=== PATIENT | male | born 1990 | race Caucasian/White ===

== ENCOUNTER 2017-03-11 20:54 | Emergency (ER) | payer MEDICAID ==
[~2017-03-11] VITALS: Ht 170.2 cm; Wt 72.6 kg
[2017-03-11] MEDS ORDERED: METRONIDAZOLE 500 MG TABLET PO ONE (22:30)
[2017-03-11] MEDS ORDERED: HYDROCODONE/APAP 10-325 MG TABLET PO ONE (22:30)
[2017-03-11] MEDS ORDERED: SULFAMETH/TRIMETH 800/160 MG TABLET PO ONE (22:30)
[2017-03-11] MEDS ORDERED: CEFTRIAXONE 1 G VIAL IM ONE (22:30)
[2017-03-11] MEDS ORDERED: LIDOCAINE HCL 1% 20 ML VIAL ONE (22:38)
[2017-03-11] MEDS ORDERED: CEFTRIAXONE 1 G VIAL ONE (22:38)
[2017-03-11] MEDS ORDERED: METRONIDAZOLE 500 MG TABLET ONE (22:38)
[2017-03-11] MEDS ORDERED: HYDROCODONE/APAP 10-325 MG TABLET ONE (22:38)
--- NOTE | 2017-03-11 22:38 | NUR ---
Patient does not wish to proceed with medical care recommended by Dr. CHAPMAN ). Patient given information related to possible complications, up to and including , which could occur as a result of leaving the hospital at this time. Patient verbalizes understanding of risks involved due to leaving against medical advice. Patient has signed AMA form.
[2017-03-11] MEDS ORDERED: SULFAMETH/TRIMETH 800/160 MG TABLET ONE (22:39)
[2017-03-11 22:40] VITALS: BP 120/66
== END 2017-03-11 22:42 | disposition left against medical advice (07) ==
LOC: ER 20:56
DX: L03.113 Cellulitis of right upper limb (principal); F11.10 Opioid abuse, uncomplicated; F17.200 Nicotine dependence, unspecified, uncomplicated; F41.9 Anxiety disorder, unspecified; Z71.6 Tobacco abuse counseling; Z88.0 Allergy status to penicillin; Z59.0 Homelessness
CPT/HCPCS: A4663; J0696; J3490

== ENCOUNTER 2017-04-21 03:21 | Emergency (ER) | payer MEDICAID ==
[~2017-04-21] VITALS: Ht 170.2 cm; Wt 68.0 kg
[2017-04-21 04:14] LABS: *BILIRUBIN,URIN NEGATIVE (NEGATIVE); *BLOOD, URINE 1+ (NEGATIVE); *CLARITY,URINE CLEAR (CLEAR); *COLOR,URINE YELLOW (YELLOW); *KETONES,URINE NEGATIVE (NEGATIVE); *PROTEIN,URINE TRACE (NEGATIVE); *UROBILINOGEN,URINE 0.2 E.U./dl (NORMAL); LEUKOCYTE ESTERASE ,URINE NEGATIVE (NEGATIVE); NITRITE, URINE NEGATIVE (NEGATIVE); PH,URINE 5.5 (5.0-8.0); UGLUCOSE NEGATIVE (NEGATIVE)
[2017-04-21 04:15] LABS: BASOPHILS # (AUTO) 0.1 K/uL (0.0-8.0); BASOPHILS % (AUTO) 0.7 % (0.0-2.0); EOSINOPHILS # (AUTO) 0.2 K/uL (0.0-0.7); EOSINOPHILS % (AUTO) 2.8 % (0.0-7.0); HEMATOCRIT 36.6 % (40-50); HEMOGLOBIN 11.8 G/DL (14.0-18.0); LYMPHOCYTES # (AUTO) 2.7 K/UL (0.8-4.8); LYMPHOCYTES % (AUTO) 34.3 % (20.5-51.5); MEAN CORPUSCULAR HEMOGLOBIN 26.4 UUG (27.0-31.0); MEAN CORPUSCULAR HGB CONC 32 g/dL (32.0-37.0); MEAN CORPUSCULAR VOLUME 81.6 FL (82.0-92.0); MONOCYTES # (AUTO) 0.6 K/UL (0.1-1.30); MONOCYTES % (AUTO) 7.4 % (0.0-11.0); NEUTROPHILS # (AUTO) 4.3 K/UL (1.8-8.9); NEUTROPHILS % (AUTO) 54.8 % (38.5-71.5); PLATELET COUNT (AUTO) 318 K/UL (150-450); RED BLOOD CELL COUNT(AUTO) 4.48 MIL/UL (4.7-6.1); WHITE BLOOD COUNT (AUTO) 7.9 K/UL (4.0-11.2)
--- NOTE | 2017-04-21 04:20 | NUR ---
Pt to room and changed into gown. Pt sts he has been using drugs last year and half, wants help to get clean and sober. Pt denies SI and HI at this time. 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 PT seen by . Labs drawn and sent. EKG obtained. Pt resting in position of comfort for self.
[2017-04-21 04:21] LABS: CARBON DIOXIDE 29 mmol/L (21-32); CHLORIDE 101 mmol/L (98-107); CREATININE 0.9 mg/dL (0.6-1.3); GLUCOSE 106 mg/dL (74-106); POTASSIUM 3.6 mmol/L (3.5-5.1); UREA NITROGEN, BLOOD 12 mg/dL (7-18)
[2017-04-21 04:27] LABS: ALANINE AMINOTRANSFERASE 22 U/L (16-63); ALKALINE PHOSPHATASE 85 U/L (50-136); ASPARTATE AMINOTRANSFERASE 21 U/L (15-37); BILIRUBIN,DIRECT 0.1 mg/dL (0.0-0.2); BILIRUBIN,TOTAL 0.2 mg/dL (0.2-1.0); TOTAL PROTEIN, SERUM 8.1 g/dL (6.4-8.2)
[2017-04-21 04:28] LABS: *AMPHETAMINE, URINE POSITIVE (NEGATIVE); *BARBITURATE, URINE NEGATIVE (NEGATIVE); *CANNABINOID, URINE POSITIVE (NEGATIVE); *COCCAINE, URINE NEGATIVE (NEGATIVE); *OPIATE, URINE POSITIVE (NEGATIVE); *PHENCYCLIDINE SCREEN,URINE NEGATIVE (NEGATIVE)
[2017-04-21 04:35] LABS: ACETAMINOPHEN < 2.0 ug/mL (10-30)
[2017-04-21 04:36] LABS: ETHANOL < 3 MG/DL (0-0)
[2017-04-21 04:37] LABS: BACTERIA,URINE FEW /HPF (NONE SEEN); MUCUS,URINE MANY /LPF (0-FEW); SQUAMOUS EPITHELIAL CELL,UR FEW /HPF (NONE SEEN); WBC,URINE 0-3 /HPF (0-3)
--- NOTE | 2017-04-21 04:55 | NUR ---
PER ERMD PT MEDICALLY CLEARED, CONTACTED ONCALL GONZALES NEAL, STATES HE WILL BE IN BY SHIFT CHANGE [id number]...
--- NOTE | 2017-04-21 05:34 | NUR ---
Pt resting in position of comfort for self with eyes closed, resp even and unlabored. No obvious signs of distress at this time.
--- NOTE | 2017-04-21 07:10 | NUR ---
Report given to NICKI Carcamo. I relinquish care of pt at this time.
--- NOTE | 2017-04-21 07:30 | NUR ---
arnoldo wood at bedside for psych eval
--- NOTE | 2017-04-21 08:45 | NUR ---
[facility] regular tray provided for pt.
--- NOTE | 2017-04-21 09:16 | NUR ---
per jaiden at [facility], pt is not accepted to [facility]. md and pt notified
--- NOTE | 2017-04-21 09:47 | NUR ---
[facility] social worker at bedside talking to pt.
--- NOTE | 2017-04-21 10:01 | NUR ---
Patient discharged to home in stable conditon. Written and verbal after care instructions given. Patient verbalizes understanding of instructions.pt walks in steady gait. no sign of distress.
[2017-04-21 10:02] VITALS: BP 109/61
--- NOTE | 2017-04-21 13:23 | NUR ---
SW met with patient this morning, per request from NICKI Carcamo. Patient was in the bed in his assigned ED room. Patient was sleeping, but woke up to speak with SW. Patient was cooperative with SW, but stated that he didn't feel he needed any resources and was planning on returning to his previous homeless lifestyle. Patient was assessed last night by the crisis team ADDY (see notes). SW asked patient if there was anyone he wanted SW to call for him, but patient stated that he would call his friend after leaving the ED. Patient then asked SW if he just wanted to get a few more minutes of sleep before leaving. SW ended the meeting, and wished patient well. Upon discharge, patient signed the Homeless Patient Waiver Form. Form filed in patient's ED chart. Dr. Yanez and NICKI Carcamo informed of above.
== END 2017-04-21 10:03 | disposition home or self-care (01) ==
LOC: ER 03:27
DX: F32.9 Major depressive disorder, single episode, unspecified (principal); F41.9 Anxiety disorder, unspecified; F17.200 Nicotine dependence, unspecified, uncomplicated; F11.10 Opioid abuse, uncomplicated; F12.10 Cannabis abuse, uncomplicated; F19.10 Other psychoactive substance abuse, uncomplicated; Z88.0 Allergy status to penicillin; Z59.0 Homelessness
CPT/HCPCS: 36415; 71010; 80307; 85025; 93005; A4663; G0480; G0480-TC

== ENCOUNTER 2017-07-27 22:20 | Inpatient (IN) | payer MEDICAID ==
[~2017-07-27] VITALS: Ht 170.2 cm; Wt 78.6 kg
[2017-07-27] MEDS ORDERED: QUET100T PO (22:53)
[2017-07-27] MEDS ORDERED: LORA-259 PO (22:53)
[2017-07-27] MEDS ORDERED: DULO20CA PO (22:53)
[2017-07-28] VITALS: BP 128/74
[2017-07-28] MEDS ORDERED: ONDANSETRON 4 MG/2 ML VIAL IV PRN (00:30)
[2017-07-28] MEDS ORDERED: ACETAMINOPHEN 325 MG TABLET PO PRN (00:30)
[2017-07-28] MEDS ORDERED: HYDROCODONE/APAP 10-325 MG TABLET PO PRN (00:30)
[2017-07-28] MEDS ORDERED: HYDROCODONE/APAP 5-325MG TABLET PO PRN (00:30)
[2017-07-28] MEDS ORDERED: MAGNESIUM HYDROXIDE 30 ML LIQUID UDC PO PRN (00:30)
[2017-07-28] MEDS ORDERED: Z GUARD REMEDY PASTE 57 GM TUBE TOP PRN (00:30)
--- NOTE | 2017-07-28 01:19 | NUR ---
PATIENT ADMITTED INTO MED-SURG AT 0119 [facility]OUGH [facility] FROM ER IN STABLE CONDITION. NO S/S OF DISTRESS. A/O X3. VITAL SIGNS STABLE. BELONGINGS CHECKLIST WAS BEING DONE, PATIENT VERBALIZED THAT HE HAS USED NEEDLES IN HIS BACKPACK AND IN ONE OF THE CLEAR BAGS. NOTIFIED PATIENT THAT HE WILL NEED TO TAKE THE NEEDLES OUT AND PLACE ALL NEEDLES INTO BIOHAZARD BAG. CHARGE NURSE NOTIFIED. PATIENT IS COOPERATIVE. APPEARS TO BE RESTLESS AND IN NEED OF REST. PATIENT COMPLAINED OF BURNING PAIN IN LEFT ARM, 10/10 ON PAIN SCALE. AMBULATORY. CALL LIGHT WITHIN REACH. BED IN LOCKED/LOW POSITION. WILL FOLLOW UP STRICTLY WITH PATIENT'S NEEDLES AND ATTEND TO PATIENT'S PAIN. SAFETY AND COMFORT WILL BE PROVIDED THROUGHOUT SHIFT.
--- NOTE | 2017-07-28 01:27 | NUR ---
Patient discharged to home in stable conditon. Written and verbal after care instructions given. Patient verbalizes understanding of instructions.
[2017-07-28] MEDS: MORPHINE SULFATE 2 MG/1 ML DISP.SYRIN IV PRN ×2 (02:41→09:26)
[2017-07-28] MEDS ORDERED: MORPHINE SULFATE 4 MG/1 ML DISP.SYRIN ONE (02:51)
[2017-07-28] MEDS ORDERED: MORPHINE SULFATE 2 MG/1 ML DISP.SYRIN ONE (02:54)
[2017-07-28 04:53] VITALS: BP 125/64
--- NOTE | 2017-07-28 05:44 | NUR ---
PATIENT SLEPT THROUGH THE NIGHT FROM ADMISSION INTO MED-SURG UNIT. PATIENT'S NEEDLES AND WILL BE CHECKED AND TAKEN AT 0600 PATIENT NEEDED REST THROUGH THE NIGHT. FOLLOW UP AT 0600. PATIENT IS IN STABLE CONDITION, VITAL SIGNS STABLE, AND NO S/S OF DISTRESS. BED IN LOCKED/LOW POSITION WITH SIDE RAILS UP X2. CALL LIGHT WITHIN REACH. COMFORT AND SAFETY PROVIDED THROUGH THE SHIFT.
--- NOTE | 2017-07-28 06:40 | NUR ---
ALL OF PATIENT'S BELONGINGS CHECKED AND DISCARDED NEEDLES INTO SHARP BIN. PATIENT WAS COOPERATIVE.
[2017-07-28] MEDS ORDERED: VANCOMYCIN IV 1,250 MG in IV DEXTROSE 5% 500 ML IV ONE (09:00)
--- NOTE | 2017-07-28 09:00 | NUR ---
awake alert cooperate well eat breakfast with good appetite RT UPPER ARM AND LEFT ARM SWELLING AND REDNESS SKIN CELLULITIS KEEP UP ON PILLOW INSTRUCTION RESTING QUIET WITH CALL LIGHT IN REACH NO SOB OR PAIN AT THIS TIME
[2017-07-28] MEDS: DULOXETINE 20 MG CAPSULE.DR PO SCH (09:31)
--- NOTE | 2017-07-28 10:00 | NUR ---
BUNCH BREAKER TOBINOS SEE PATIENT AND LAB RESULT NEW ORDER IN CHART UA FOR C&S AND DRUG SCREEN SENT TO LAB
[2017-07-28] MEDS: HYDROCORTISONE 1% OINT 28.35 GM TUBE TOP SCH ×3 (11:30→21:10)
[2017-07-28 11:45] VITALS: BP 123/71
--- NOTE | 2017-07-28 11:45 | NUR ---
US OF AL UPPER ARM AT BEDSIDE MARTY PROCEDURE WELL
[2017-07-28] MEDS: HYDROMORPHONE 1 MG/1 ML DISP.SYRIN IV PRN ×3 (11:54→19:33)
[2017-07-28 12:04] LABS: *BILIRUBIN,URIN NEGATIVE (NEGATIVE); *BLOOD, URINE 1+ (NEGATIVE); *CLARITY,URINE SLIGHTLY CLOUDY (CLEAR); *COLOR,URINE YELLOW (YELLOW); *KETONES,URINE NEGATIVE (NEGATIVE); *PROTEIN,URINE NEGATIVE (NEGATIVE); LEUKOCYTE ESTERASE ,URINE TRACE (NEGATIVE); NITRITE, URINE NEGATIVE (NEGATIVE); PH,URINE 8.5 (5.0-8.0); UGLUCOSE NEGATIVE (NEGATIVE)
[2017-07-28 12:17] LABS: *AMPHETAMINE, URINE NEGATIVE (NEGATIVE); *BARBITURATE, URINE NEGATIVE (NEGATIVE); *CANNABINOID, URINE NEGATIVE (NEGATIVE); *COCCAINE, URINE NEGATIVE (NEGATIVE); *OPIATE, URINE POSITIVE (NEGATIVE); *PHENCYCLIDINE SCREEN,URINE NEGATIVE (NEGATIVE)
[2017-07-28 12:19] LABS: BACTERIA,URINE MODERATE /HPF (NONE SEEN); SQUAMOUS EPITHELIAL CELL,UR FEW /HPF (NONE SEEN); URINE AMORPHOUS PHOSPHATES MANY /HPF
--- NOTE | 2017-07-28 12:30 | NUR ---
EAT LUNCH MOD AMT RADIAL PULSE CHECK Q4 HR WNL NO NUMNESS OR TINGING AT LEFT ARM ENC TO KEEP UP ON PILLOW
--- NOTE | 2017-07-28 12:36 | NUR ---
Clinical Pharmacy Note: Vancomycin Pharmacy to Dose Subjective: Vancomycin to start for this 27 YO male patient for cellulitis Objective: height 67'' weight 173 lb BUN 12 (04/21- refused labs today) Scr 0.9 (04/21- refused labs today) temp 98.2 Assessment/Plan Will start vancomycin 1250 mg IVPB q10h for predicted vancomycin trough level of 15.8 mcg/ml at steady state. 1st dose was today at 0900. plan to draw vanco trough level tomorrow at 1430 9before 4th dose). Pharmacy will follow & adjust the dose if needed. Will continue to follow up.
[2017-07-28] MEDS: FAMOTIDINE 20 MG TABLET PO SCH (13:37)
[2017-07-28] MEDS: LEVOFLOXACIN 500 MG/D5W 500 MG in PREMIXED 1 EACH IV SCH (13:57)
--- NOTE | 2017-07-28 17:00 | NUR ---
MID LINE INSERTION ON LEFT UPPER ARM BY SPECIAL PICC LINE NURSE MARTY PROCEDURE WELL
[2017-07-28] MEDS: LORAZEPAM 1 MG TABLET PO PRN (17:54)
--- NOTE | 2017-07-28 18:00 | NUR ---
STABLE HEMODYNAMIC PAIN UNDER CONTROL NO ACUTE DISTRESS SAFETY MEASURE PROVIDED CALL LIGHT WITHIN REACH CONTINUE IV ANTIBIOTICS ORDERED
[2017-07-28] MEDS: VANCOMYCIN IV 1,250 MG in IV DEXTROSE 5% 500 ML IV SCH (18:34)
[2017-07-28] MEDS ORDERED: VANCOMYCIN IV 1 G in PREMIXED 0 EACH IV SCH (19:00)
[2017-07-28 20:00] VITALS: BP 123/66
--- NOTE | 2017-07-28 20:06 | NUR ---
RECEIVED SHIFT REPORT FROM PREVIOUS SHIFT NURSE. PATIENT IS IN STABLE CONDITION, NO S/S OF DISTRESS, RESTING COMFORTABLY IN BED. PREVIOUS SHIFT ADMINISTERED PAIN MEDICATION AT END OF SHIFT AND PATIENT VERBALIZES A DECREASE OF PAIN 4/10 ON PAIN SCALE AND AT TOLERABLE LEVEL. BED IN LOCKED/LOW POSITION WITH SIDE RAILS UP X2. CALL LIGHT WITHIN REACH. SAFETY AND COMFORT WILL BE PROVIDED THROUGHOUT SHIFT.
[2017-07-28] MEDS ORDERED: QUETIAPINE FUMARATE 100 MG TABLET PO SCH (21:00)
--- NOTE | 2017-07-28 21:30 | NUR ---
BLOOD DRAW FROM MIDLINE AND SENT TO LABORATORY.
--- NOTE | 2017-07-28 21:51 | NUR ---
NO LONGER ASSIGNED TO PATIENT IRENA. REPORT GIVEN TO FRIDA WHO WILL BE CARING FOR PATIENT STARTING AT THIS TIME. WILL ASSIST FRIDA WITH IV MEDICATIONS/BLOOD DRAWS NEEDED.
[2017-07-28 21:54] LABS: BASOPHILS # (AUTO) 0.1 K/uL (0.0-8.0); BASOPHILS % (AUTO) 0.7 % (0.0-2.0); EOSINOPHILS # (AUTO) 0.1 K/uL (0.0-0.7); EOSINOPHILS % (AUTO) 0.8 % (0.0-7.0); HEMOGLOBIN 13.4 G/DL (14.0-18.0); LYMPHOCYTES # (AUTO) 2.5 K/UL (0.8-4.8); LYMPHOCYTES % (AUTO) 19.4 % (20.5-51.5); MEAN CORPUSCULAR HEMOGLOBIN 27.6 UUG (27.0-31.0); MEAN CORPUSCULAR HGB CONC 33 g/dL (32.0-37.0); MEAN CORPUSCULAR VOLUME 84.6 FL (82.0-92.0); MONOCYTES # (AUTO) 0.8 K/UL (0.1-1.30); MONOCYTES % (AUTO) 5.9 % (0.0-11.0); NEUTROPHILS # (AUTO) 9.5 K/UL (1.8-8.9); NEUTROPHILS % (AUTO) 73.2 % (38.5-71.5); PLATELET COUNT (AUTO) 372 K/UL (150-450); RED BLOOD CELL COUNT(AUTO) 4.85 MIL/UL (4.7-6.1)
[2017-07-28 22:08] LABS: BILIRUBIN,TOTAL 0.2 mg/dL (0.2-1.0); CREATININE 0.8 mg/dL (0.6-1.3); MAGNESIUM 2.1 mg/dL (1.8-2.4); PHOSPHOROUS 2.7 mg/dL (2.5-4.9); POTASSIUM 3.7 mmol/L (3.5-5.1); TOTAL PROTEIN, SERUM 8.1 g/dL (6.4-8.2)
[2017-07-28 22:15] LABS: THYROID STIMULATING HORMONE 0.152 mIU/mL (0.358-3.740)
--- NOTE | 2017-07-28 22:47 | NUR ---
ASSIGNED BACK TO PATIENT, WILL BE CARING FOR IRENA IN ROOM 225 FROM THIS POINT ON.
[2017-07-29] MEDS: HYDROMORPHONE 1 MG/1 ML DISP.SYRIN IV PRN ×6 (00:13→21:00)
[2017-07-29 04:59] VITALS: BP 150/70
[2017-07-29] MEDS: LORAZEPAM 1 MG TABLET PO PRN (06:13)
--- NOTE | 2017-07-29 06:13 | NUR ---
PATIENT VERBALIZED FEELING ANXIOUS, AND NERVOUS BECAUSE HE HAS NOT BEEN ABLE TO GET SUFFICIENT SLEEP. PATIENT'S BLOOD PRESSURE AND RESPIRATORY RATE CHECKED AND WNL. ATIVAN 1 MG PO ADMINISTERED TO PATIENT AT THIS TIME.
[2017-07-29] MEDS: VANCOMYCIN IV 1,250 MG in IV DEXTROSE 5% 500 ML IV SCH (06:14)
--- NOTE | 2017-07-29 06:25 | NUR ---
PATIENT SLEPT INTERMITTENTLY THROUGHOUT THE NIGHT. PATIENT COMPLAINED OF BURNING PAIN IN LEFT ARM RATED 10/10 ON PAIN SCALE. PAIN MANAGEMENT AND MEDICATION PROVIDED TO PATIENT AND PATIENT VERBALIZED TOLERABLE PAIN LEVEL. PATIENT IS IN STABLE CONDITION, NO S/S OF DISTRESS. PATIENT IS A/O X3, COOPERATIVE AND ASSISTED WITH CARE. BED IN LOCKED/LOW POSITION WITH SIDE RAILS UP X2. CALL LIGHT WITHIN REACH OF PATIENT. SAFETY AND COMFORT CONTINUOUSLY BEING PROVIDED.
[2017-07-29 06:51] LABS: THYROID STIMULATING HORMONE 0.217 mIU/mL (0.358-3.740)
[2017-07-29 06:57] LABS: BASOPHILS # (AUTO) 0.1 K/uL (0.0-8.0); BASOPHILS % (AUTO) 0.7 % (0.0-2.0); EOSINOPHILS # (AUTO) 0.1 K/uL (0.0-0.7); EOSINOPHILS % (AUTO) 1.1 % (0.0-7.0); HEMATOCRIT 40.4 % (40-50); HEMOGLOBIN 13.6 G/DL (14.0-18.0); LYMPHOCYTES # (AUTO) 2.6 K/UL (0.8-4.8); LYMPHOCYTES % (AUTO) 23.5 % (20.5-51.5); MEAN CORPUSCULAR HGB CONC 34 g/dL (32.0-37.0); MEAN CORPUSCULAR VOLUME 83.2 FL (82.0-92.0); MONOCYTES # (AUTO) 0.8 K/UL (0.1-1.30); NEUTROPHILS # (AUTO) 7.3 K/UL (1.8-8.9); NEUTROPHILS % (AUTO) 67.7 % (38.5-71.5); PLATELET COUNT (AUTO) 386 K/UL (150-450); RED BLOOD CELL COUNT(AUTO) 4.85 MIL/UL (4.7-6.1); WHITE BLOOD COUNT (AUTO) 10.9 K/UL (4.0-11.2)
--- NOTE | 2017-07-29 07:00 | NUR ---
PATIENT IS SLEEPING IN BED COMFORTABLY. NO S/S OF RESPIRATORY DISTRESS NOTED. MIDLINE IS INTACT/PATENT. ALL SAFETY NEEDS ARE MET. PT REFUSED DVT PUMPS. EDUCATION PROVIDED. PULSES ARE PALATABLE IN ALL 4 EXTREMITIES.
[2017-07-29 07:02] LABS: BILIRUBIN,TOTAL 0.2 mg/dL (0.2-1.0); CREATININE 0.8 mg/dL (0.6-1.3); POTASSIUM 3.9 mmol/L (3.5-5.1); TOTAL PROTEIN, SERUM 8.3 g/dL (6.4-8.2)
[2017-07-29] MEDS: DULOXETINE 20 MG CAPSULE.DR PO SCH (08:21)
[2017-07-29] MEDS: FAMOTIDINE 20 MG TABLET PO SCH (08:21)
[2017-07-29] MEDS: HYDROCORTISONE 1% OINT 28.35 GM TUBE TOP SCH ×2 (08:22→21:00)
--- NOTE | 2017-07-29 11:16 | NUR ---
XARELTO IS LATE TO ADMINISTER DUE TO THE MEDICATION IS BEING LATE IN MEDICAL ROOM
[2017-07-29] MEDS: RIVAROXABAN 15 MG TABLET PO SCH ×2 (11:24→20:59)
--- NOTE | 2017-07-29 11:37 | NUR ---
PER KAILEE WHITEHEAD D/C ORAL ATIVAN, INSTEAD PUT ATIVAN IV 1MG Q6H PRN FOR ANXIETY, NEW ORDER FOR STOOL CDIFF TO SEND TO LAB
[2017-07-29] MEDS ORDERED: LORAZEPAM 2 MG/1 ML VIAL IV PRN (11:45)
[2017-07-29] MEDS: LEVOFLOXACIN 500 MG/D5W 500 MG in PREMIXED 1 EACH IV SCH (14:41)
--- NOTE | 2017-07-29 14:46 | NUR ---
WOUND CARE CONSULT: PT REFUSED SKIN ASSESSMENT. WILL SEE PT PT CONDITION PERMITS. PT HAS I.D. AND SURGICAL CONSULTS PER NURSING STAFF.
--- NOTE | 2017-07-29 15:00 | NUR ---
PT REFUSING TO HAVE BLOOD DRAW FOR VANCO TOXICUITY, EDUCATION IS PROVIDED. PT STILL REFUSES, PT STATES "AFTER PUDDING AND JUICE I MIGHT THINK ABOUT IT", PROVIDED SNACKS, WAITING ON PT. ADVISED PHARMACY AND LAB
[2017-07-29] MEDS ORDERED: OXYCODONE HCL 5 MG TABLET PO PRN (15:15)
--- NOTE | 2017-07-29 15:28 | NUR ---
PT HAS NOT HAVE BM YET, NO SPECIMENT TO SEND OVER Addendum: 07/29/17 at 1651 by FABIO HOUSE RN pt's midline did not work for blood draw, pt refused blood draw by stick even after nurse brought whatever snacks he requested earlier. Education is provided, pt still refuses
[2017-07-29] MEDS ORDERED: CLONIDINE-TTS 1 PATCH TD SCH (16:00)
--- NOTE | 2017-07-29 16:43 | NUR ---
pt refuses every medication/treatment/intervention up until he will "receive pain medication [Dilaudid iv]"
[2017-07-29] MEDS ORDERED: CLINDAMYCIN PHOSPHATE IV 900 MG in IV DEXTROSE 5% 100 ML IV SCH (17:00)
--- NOTE | 2017-07-29 17:04 | NUR ---
per KAILEE Redmond "ok to give Dilaudid early" one time order. Will administer the pain med early
[2017-07-29] MEDS ORDERED: ZOLPIDEM 5 MG TABLET PO PRN (18:30)
--- NOTE | 2017-07-29 19:30 | NUR ---
Pt in room alert awake and refuses to have vital signs taken. States pain to both right and left arm. Cellulitis still present with edema bilateral upper extremities. States he just wants to sleep at this time. Call light placed within reach. No s/s or reaction to current abx IV therapy. Continue to monitor.
--- NOTE | 2017-07-29 19:35 | NUR ---
PT IS LAYING IN BED. PT SCREAMED "JUST LEAVE ME ALONE", ASKED THE PT HOW THE PT FEELS. PT IGNORED THE QUESTION. PULSES ARE NORMAL LEFT ARM. NO S/S OF RESPIRATORY DISTRESS NOTED. PT STILL REFUSES V/S TO BE TAKEN AND BLOOD DRAWN. ALL SAFETY NEEDS ARE MET. ASKED THE PT IF HE WANTS TO TAKE SHOWER, PT REFUSED. PT REFUSES EVS TO CLEAN HIS ROOM. NO PAIN REPORTED. REPORT IS GIVEN
[2017-07-29] MEDS: LACTOBACILLUS RHAMNOSUS GG 1 EACH CAPSULE PO SCH (20:58)
[2017-07-30] MEDS: HYDROMORPHONE 1 MG/1 ML DISP.SYRIN IV PRN ×6 (00:57→20:59)
--- NOTE | 2017-07-30 05:18 | NUR ---
Pt refusing morning blood draws. States he wants the lab to come back at a later time and requests only his Dilaudid at this time due to pain to right upper extremities 03/14. Continue to monitor.
[2017-07-30 05:24] VITALS: BP 158/78
--- NOTE | 2017-07-30 06:00 | NUR ---
PT IN ROOM IN NO ACUTE DISTRESS. DILAUDID GIVEN AND STATES IT HELPS HIM WITH PAIN IN HIS ARM. CELLULITIS WITH EDEMA STILL PRESENT TO LEFT EXTREMITY. ABLE TO GET UP OUT OF BED WITHOUT DIFFICULTY. CALL LIGHT PLACED WITHIN REACH. BP NOTED 158/78. T-98.5. CONTINUE TO MONITOR.
[2017-07-30] MEDS: LORAZEPAM 1 MG TABLET PO PRN ×2 (07:33→15:18)
--- NOTE | 2017-07-30 07:41 | NUR ---
PATIENT IS SLEEPING IN BED COMFORTABLY. NO S/S OF RESPIRATORY DISTRESS NOTED. MIDLINE IS INTACT/PATENT. ALL SAFETY NEEDS ARE MET. PT REFUSED DVT PUMPS. EDUCATION PROVIDED. PALATABLE ATIVAN 1MG PO GIVEN
[2017-07-30] MEDS: LACTOBACILLUS RHAMNOSUS GG 1 EACH CAPSULE PO SCH ×2 (08:01→21:02)
[2017-07-30] MEDS: DULOXETINE 20 MG CAPSULE.DR PO SCH (08:02)
[2017-07-30] MEDS: HYDROCORTISONE 1% OINT 28.35 GM TUBE TOP SCH ×2 (08:02→21:00)
[2017-07-30] MEDS: FAMOTIDINE 20 MG TABLET PO SCH (08:02)
[2017-07-30] MEDS: RIVAROXABAN 15 MG TABLET PO SCH ×2 (08:09→21:01)
--- NOTE | 2017-07-30 08:34 | NUR ---
PT REFUSING THE BLOOD DRAW AND STOOL SAMPLE AND WOUND C/S MD MADE AWARE.
[2017-07-30 10:18] LABS: BASOPHILS # (AUTO) 0.2 K/uL (0.0-8.0); BASOPHILS % (AUTO) 1.7 % (0.0-2.0); EOSINOPHILS # (AUTO) 0.1 K/uL (0.0-0.7); EOSINOPHILS % (AUTO) 0.6 % (0.0-7.0); HEMATOCRIT 44.3 % (40-50); HEMOGLOBIN 14.7 G/DL (14.0-18.0); LYMPHOCYTES # (AUTO) 2.3 K/UL (0.8-4.8); LYMPHOCYTES % (AUTO) 17.6 % (20.5-51.5); MEAN CORPUSCULAR HEMOGLOBIN 27.8 UUG (27.0-31.0); MEAN CORPUSCULAR HGB CONC 33 g/dL (32.0-37.0); MEAN CORPUSCULAR VOLUME 83.8 FL (82.0-92.0); MONOCYTES # (AUTO) 0.6 K/UL (0.1-1.30); MONOCYTES % (AUTO) 4.6 % (0.0-11.0); NEUTROPHILS # (AUTO) 9.9 K/UL (1.8-8.9); NEUTROPHILS % (AUTO) 75.5 % (38.5-71.5); PLATELET COUNT (AUTO) 426 K/UL (150-450); RED BLOOD CELL COUNT(AUTO) 5.29 MIL/UL (4.7-6.1); WHITE BLOOD COUNT (AUTO) 13.1 K/UL (4.0-11.2)
[2017-07-30 10:52] LABS: BILIRUBIN,TOTAL 0.2 mg/dL (0.2-1.0); CREATININE 0.9 mg/dL (0.6-1.3); MAGNESIUM 1.8 mg/dL (1.8-2.4); PHOSPHOROUS 3.1 mg/dL (2.5-4.9); POTASSIUM 3.5 mmol/L (3.5-5.1); TOTAL PROTEIN, SERUM 8.8 g/dL (6.4-8.2)
[2017-07-30 11:25] VITALS: BP 148/80
[2017-07-30] MEDS: LEVOFLOXACIN 500 MG/D5W 500 MG in PREMIXED 1 EACH IV SCH (13:28)
--- NOTE | 2017-07-30 16:29 | NUR ---
Clinical Pharmacy Note: Vancomycin Pharmacy to Dose Subjective: Vancomycin to re-start for this 27 YO male patient for cellulitis Objective: height 67'' weight 173 lb BUN 6 Scr 0.9 WBC 13.1 temp 98.6 Assessment/Plan Will re-start vancomycin 1250 mg IVPB q10h for predicted vancomycin trough level of 16 mcg/ml at steady state. 1st dose is at 0030 ([employer] approved start at 0030 on 07/31 in order to be able to schedule vanco trough at 0600 on 08/01 with am labs- patient previously on 07/29 refused vanco trough be drawn. thus, vanco was dced per [employer] at that time). Plan to draw vanco trough level on 08/01 at 0600 -before 4th dose). Pharmacy will follow & adjust the dose if needed. Will continue to follow up.
--- NOTE | 2017-07-30 17:00 | NUR ---
Pt refusing blood draws. States he wants the lab to come back at a later time and requests only his Dilaudid at this time due to pain to right upper extremities . Continue to monitor.
--- NOTE | 2017-07-30 19:30 | NUR ---
PT IS IN ROOM ASLEEP AT THIS TIME. NO ACUTE DISTRESS. PT REFUSES VITAL SIGNS TO BE TAKEN. MADE AWARE OF REPORTING ANY BM. CONTINUE TO MONITOR FOR PAIN MANAGEMENT. NO INCREASE IN SWELLING TO AFFECTED ARMS BILATERAL STATES HE FEELS BETTER SINCE ADMISSION.
--- NOTE | 2017-07-30 20:05 | NUR ---
PT REFUSES SURGICAL CONSULT REGARDING I/D AT THIS TIME. STATES HE WANTS TO THINK ABOUT IT AND AVOIDING BEDSIDE SURGERY AT NIGHT. AWARE.
[2017-07-31] MEDS: HYDROMORPHONE 1 MG/1 ML DISP.SYRIN IV PRN ×3 (00:46→08:11)
[2017-07-31] MEDS: VANCOMYCIN IV 1,250 MG in IV DEXTROSE 5% 500 ML IV SCH ×2 (00:47→09:56)
[2017-07-31 04:33] VITALS: BP 145/78
--- NOTE | 2017-07-31 07:40 | NUR ---
PT IS IN ROOM ASLEEP AT THIS TIME. NO ACUTE DISTRESS.CONTINUE TO MONITOR FOR PAIN MANAGEMENT. NO INCREASE IN SWELLING TO AFFECTED ARMS BILATERAL STATES HE FEELS BETTER SINCE ADMISSION.
[2017-07-31] MEDS: RIVAROXABAN 15 MG TABLET PO SCH (08:02)
[2017-07-31] MEDS: LACTOBACILLUS RHAMNOSUS GG 1 EACH CAPSULE PO SCH (08:02)
[2017-07-31] MEDS: DULOXETINE 20 MG CAPSULE.DR PO SCH (08:02)
[2017-07-31] MEDS: FAMOTIDINE 20 MG TABLET PO SCH (08:03)
[2017-07-31] MEDS: HYDROCORTISONE 1% OINT 28.35 GM TUBE TOP SCH (08:03)
[2017-07-31 09:31] LABS: BASOPHILS # (AUTO) 0.1 K/uL (0.0-8.0); BASOPHILS % (AUTO) 0.8 % (0.0-2.0); EOSINOPHILS # (AUTO) 0.1 K/uL (0.0-0.7); EOSINOPHILS % (AUTO) 1.2 % (0.0-7.0); HEMATOCRIT 44.7 % (40-50); HEMOGLOBIN 15.1 G/DL (14.0-18.0); LYMPHOCYTES # (AUTO) 2.3 K/UL (0.8-4.8); LYMPHOCYTES % (AUTO) 22.2 % (20.5-51.5); MEAN CORPUSCULAR HEMOGLOBIN 28.2 UUG (27.0-31.0); MEAN CORPUSCULAR HGB CONC 34 g/dL (32.0-37.0); MEAN CORPUSCULAR VOLUME 83.7 FL (82.0-92.0); MONOCYTES # (AUTO) 0.5 K/UL (0.1-1.30); MONOCYTES % (AUTO) 4.4 % (0.0-11.0); NEUTROPHILS # (AUTO) 7.5 K/UL (1.8-8.9); NEUTROPHILS % (AUTO) 71.4 % (38.5-71.5); PLATELET COUNT (AUTO) 444 K/UL (150-450); RED BLOOD CELL COUNT(AUTO) 5.34 MIL/UL (4.7-6.1); WHITE BLOOD COUNT (AUTO) 10.5 K/UL (4.0-11.2)
[2017-07-31 09:53] LABS: BILIRUBIN,TOTAL 0.2 mg/dL (0.2-1.0); POTASSIUM 3.3 mmol/L (3.5-5.1); TOTAL PROTEIN, SERUM 8.6 g/dL (6.4-8.2)
[2017-07-31] MEDS ORDERED: POTASSIUM CHLORIDE 20 MEQ TAB.PRT.SR PO ONE (10:45)
[2017-07-31 11:14] VITALS: BP 131/80
[2017-07-31] MEDS ORDERED: LEVOFLOXACIN 500 MG TABLET PO SCH (12:00)
--- NOTE | 2017-07-31 12:00 | NUR ---
pt refused to take the wound picture. made aware
[2017-07-31] MEDS ORDERED: RIVA15TA PO (12:15)
[2017-07-31] MEDS ORDERED: HYDR28.34 TOP (12:15)
[2017-07-31] MEDS ORDERED: LEVO500T2 PO (12:15)
[2017-07-31] MEDS ORDERED: CLON1PAT TD (12:15)
[2017-07-31] MEDS ORDERED: LACT1CAP57 PO (12:15)
[2017-07-31] MEDS ORDERED: RIVA10TA PO (12:15)
[2017-07-31] MEDS ORDERED: OXYC5TAB3 PO (12:15)
--- NOTE | 2017-07-31 12:24 | NUR ---
d/c orders received noted and carried out,d/c instruction and educations given to the pt .d/c midline per md orders.pt left the facility via walking out side the hospital in stable condition.
[2017-08-01 07:06] LABS: HEPATITIS A AB, IgM Negative (Negative); HEPATITIS B SURFACE AG Negative (Negative)
[2017-08-19] MEDS ORDERED: RIVAROXABAN 10 MG TABLET PO SCH (18:00)
== END 2017-07-31 12:25 | disposition home or self-care (01) | DRG 383 ==
LOC: ER 22:21 → MED 07-28 00:15
PROVIDERS: ADMIT Internal Medicine; ATTEND Internal Medicine
PROC: 3E03329 Introduction of Other Anti-infective into Peripheral Vein, Percutaneous Approach (ICD-10-PCS; principal; 2017-07-28)
PROC: 05H633Z Insertion of Infusion Device into Left Subclavian Vein, Percutaneous Approach (ICD-10-PCS; principal; 2017-07-28)
DX: L03.114 Cellulitis of left upper limb (principal); E44.0 Moderate protein-calorie malnutrition; I82.622 Acute embolism and thrombosis of deep veins of left upper extremity; L03.113 Cellulitis of right upper limb; N39.0 Urinary tract infection, site not specified; F17.210 Nicotine dependence, cigarettes, uncomplicated; Z87.442 Personal history of urinary calculi; Z59.0 Homelessness; L30.9 Dermatitis, unspecified; R60.0 Localized edema; G47.00 Insomnia, unspecified; F19.10 Other psychoactive substance abuse, uncomplicated; Z68.27 Body mass index [BMI] 27.0-27.9, adult; S51.832S Puncture wound without foreign body of left forearm, sequela; S61.431S Puncture wound without foreign body of right hand, sequela; X78.8XXS Intentional self-harm by other sharp object, sequela; E87.1 Hypo-osmolality and hyponatremia; E05.90 Thyrotoxicosis, unspecified without thyrotoxic crisis or storm; F11.23 Opioid dependence with withdrawal; R73.9 Hyperglycemia, unspecified; E87.6 Hypokalemia; E66.3 Overweight; Z88.0 Allergy status to penicillin; Z79.899 Other long term (current) drug therapy; F32.9 Major depressive disorder, single episode, unspecified; L02.414 Cutaneous abscess of left upper limb
CPT/HCPCS: 36415; 71010; 73090; 80307; 83735; 84100; 84443; 84481; 85025; 86705; 86709; 86803; 87040; 87086; 87340; 87806; A4663; J1170; J1956; J2060; J2270; J3370; J3490; J7040; J7060

== ENCOUNTER 2019-06-10 02:34 | Inpatient (IN) | payer MEDICAID ==
[~2019-06-10] VITALS: Ht 170.2 cm; Wt 70.3 kg
[~2019-06-10 02:34] MED LIST: CLON1PAT TD; DULO20CA PO; HYDR28.34 TOP; LACT1CAP57 PO; LEVO500T2 PO; LORA-259 PO; OXYC5TAB3 PO; RIVA10TA PO; RIVA15TA PO
[2019-06-10] MEDS ORDERED: KETOROLAC TROMETHAMINE 30 MG INJ IVP ONE (03:15)
[2019-06-10] MEDS ORDERED: KETAMINE HCL 500 MG/10 ML INJ IV ONE ×2 (03:15→04:30)
[2019-06-10] MEDS ORDERED: VANCOMYCIN IV 1,000 MG in IV DEXTROSE 5% 250 ML IV ONE (03:15)
[2019-06-10] MEDS ORDERED: IV NS 1000 ML 1,000 ML IV ONE (03:15)
[2019-06-10 03:35] LABS: BASOPHILS # (AUTO) 0.1 K/uL (0.0-8.0); BASOPHILS % (AUTO) 0.6 % (0.0-2.0); EOSINOPHILS # (AUTO) 0.2 K/uL (0.0-0.7); EOSINOPHILS % (AUTO) 1.3 % (0.0-7.0); HEMATOCRIT 41.2 % (36.7-47.1); HEMOGLOBIN 13.8 g/dL (12.5-16.3); LYMPHOCYTES # (AUTO) 2.6 K/uL (20.0-40.0); LYMPHOCYTES % (AUTO) 21.8 % (20.5-51.5); MEAN CORPUSCULAR HEMOGLOBIN 29.5 uug (23.8-33.4); MEAN CORPUSCULAR HGB CONC 33 g/dL (32.5-36.3); MEAN CORPUSCULAR VOLUME 88.6 fL (73.0-96.2); MONOCYTES # (AUTO) 0.9 K/uL (2.0-10.0); MONOCYTES % (AUTO) 7.7 % (0.0-11.0); NEUTROPHILS # (AUTO) 8.1 K/uL (1.8-8.9); NEUTROPHILS % (AUTO) 68.6 % (38.5-71.5); PLATELET COUNT (AUTO) 261 K/uL (152-348); RED BLOOD CELL COUNT(AUTO) 4.66 MIL/uL (4.06-5.63); WHITE BLOOD COUNT (AUTO) 11.8 K/uL (3.6-10.2)
[2019-06-10 03:39] LABS: CREATININE 0.8 mg/dL (0.6-1.3); POTASSIUM 3.8 mmol/L (3.5-5.1)
[2019-06-10 03:45] LABS: BILIRUBIN,DIRECT 0.1 mg/dL (0.0-0.2); BILIRUBIN,TOTAL 0.5 mg/dL (0.2-1.0); TOTAL PROTEIN, SERUM 9.5 g/dL (6.4-8.2)
[2019-06-10] MEDS ORDERED: KETOROLAC TROMETHAMINE 30 MG INJ ONE (04:23)
[2019-06-10] MEDS ORDERED: KETAMINE HCL 500 MG/10 ML INJ ONE (04:24)
[2019-06-10] MEDS ORDERED: LORAZEPAM 2 MG/1 ML VIAL IV ONE (04:30)
[2019-06-10] MEDS ORDERED: LORAZEPAM 2 MG/1 ML VIAL ONE (04:33)
[2019-06-10] MEDS ORDERED: VANCOMYCIN IV 200 ML ONE (05:02)
[2019-06-10] MEDS ORDERED: MIRT15TA3 PO (05:05)
[2019-06-10] MEDS ORDERED: CLON1TAB12 PO (05:05)
[2019-06-10] MEDS ORDERED: QUET100T PO (05:05)
[2019-06-10] MEDS ORDERED: ACETAMINOPHEN 325 MG TABLET PO PRN (05:15)
[2019-06-10] MEDS ORDERED: ONDANSETRON 4 MG/2 ML VIAL IV PRN (05:15)
[2019-06-10] MEDS ORDERED: Z GUARD REMEDY PASTE 57 GM TUBE TOP PRN (05:15)
[2019-06-10] MEDS ORDERED: MAGNESIUM HYDROXIDE 30 ML LIQUID UDC PO PRN (05:15)
[2019-06-10] MEDS ORDERED: IOHEXOL 300MG/ML 100 ML INFUS..BTL ONE (05:21)
[2019-06-10] MEDS ORDERED: SWABABLE VALVE TRANSFER SET EA MC ONE (05:21)
[2019-06-10] MEDS ORDERED: IV NORMAL SALINE 250 ML IV ONE (05:21)
[2019-06-10] MEDS: KETOROLAC TROMETHAMINE 30 MG INJ IVP PRN ×2 (05:26→21:46)
[2019-06-10 05:58] VITALS: BP 136/90
[2019-06-10] MEDS: PANTOPRAZOLE SODIUM 40 MG TABLET.DR PO SCH (06:02)
[2019-06-10] MEDS: IV NS 1000 ML 1,000 ML IV PRN (06:02)
[2019-06-10 12:07] VITALS: BP 122/69
[2019-06-10] MEDS ORDERED: VANCOMYCIN IV 1,000 MG in IV DEXTROSE 5% 250 ML IV SCH (13:00)
[2019-06-10] MEDS: VANCOMYCIN IV 1,000 MG in IV DEXTROSE 5% 250 ML IV SCH ×2 (14:13→21:37)
[2019-06-10] MEDS: MORPHINE SULFATE 2 MG/1 ML DISP.SYRIN IV PRN ×2 (14:17→20:18)
[2019-06-10 15:42] VITALS: BP 115/69
[2019-06-10 19:53] VITALS: BP 110/68
[2019-06-11] MEDS: MORPHINE SULFATE 2 MG/1 ML DISP.SYRIN IV PRN ×6 (01:36→23:08)
[2019-06-11] MEDS: IV NS 1000 ML 1,000 ML IV PRN ×2 (05:05→21:38)
[2019-06-11] MEDS: KETOROLAC TROMETHAMINE 30 MG INJ IVP PRN ×2 (05:12→10:05)
[2019-06-11 05:25] VITALS: BP 130/87
[2019-06-11] MEDS: VANCOMYCIN IV 1,000 MG in IV DEXTROSE 5% 250 ML IV SCH (05:37)
[2019-06-11] MEDS: PANTOPRAZOLE SODIUM 40 MG TABLET.DR PO SCH (06:12)
[2019-06-11 06:52] LABS: BASOPHILS % (AUTO) 0.5 % (0.0-2.0); EOSINOPHILS # (AUTO) 0.1 K/uL (0.0-0.7); EOSINOPHILS % (AUTO) 1.8 % (0.0-7.0); HEMATOCRIT 36.9 % (36.7-47.1); HEMOGLOBIN 12.4 g/dL (12.5-16.3); LYMPHOCYTES # (AUTO) 1.9 K/uL (20.0-40.0); LYMPHOCYTES % (AUTO) 22.6 % (20.5-51.5); MEAN CORPUSCULAR HEMOGLOBIN 29.6 uug (23.8-33.4); MEAN CORPUSCULAR HGB CONC 34 g/dL (32.5-36.3); MEAN CORPUSCULAR VOLUME 87.8 fL (73.0-96.2); MONOCYTES # (AUTO) 0.5 K/uL (2.0-10.0); MONOCYTES % (AUTO) 6.3 % (0.0-11.0); NEUTROPHILS # (AUTO) 5.8 K/uL (1.8-8.9); NEUTROPHILS % (AUTO) 68.8 % (38.5-71.5); PLATELET COUNT (AUTO) 208 K/uL (152-348); WHITE BLOOD COUNT (AUTO) 8.3 K/uL (3.6-10.2)
[2019-06-11 07:22] LABS: CARBON DIOXIDE 29 mmol/L (21-32); CHLORIDE 100 mmol/L (98-107); CHOLESTEROL 140 mg/dL (<200); CREATININE 0.6 mg/dL (0.6-1.3); GLUCOSE 100 mg/dL (74-106); HDL CHOLESTEROL 45 mg/dL (40-60); MAGNESIUM 1.8 mg/dL (1.8-2.4); PHOSPHOROUS 3.2 mg/dL (2.5-4.9); TRIGLYCERIDES 40 MG/DL (30-150); UREA NITROGEN, BLOOD 9 mg/dL (7-18)
[2019-06-11 11:56] VITALS: BP 138/92
[2019-06-11] MEDS: CLINDAMYCIN PHOSPHATE IV 900 MG in IV DEXTROSE 5% 100 ML IV SCH ×2 (15:45→23:08)
[2019-06-11 16:13] VITALS: BP 129/83
[2019-06-11 20:24] VITALS: BP 125/74
[2019-06-11] MEDS: MIRTAZAPINE 15 MG TABLET PO SCH (21:10)
[2019-06-11] MEDS: QUETIAPINE FUMARATE 100 MG TABLET PO SCH (21:10)
[2019-06-12 05:28] VITALS: BP 108/70
[2019-06-12] MEDS: PANTOPRAZOLE SODIUM 40 MG TABLET.DR PO SCH (06:04)
[2019-06-12] MEDS: MORPHINE SULFATE 2 MG/1 ML DISP.SYRIN IV PRN ×6 (06:05→23:49)
[2019-06-12] MEDS: CLINDAMYCIN PHOSPHATE IV 900 MG in IV DEXTROSE 5% 100 ML IV SCH ×3 (08:13→23:49)
[2019-06-12] MEDS: NICOTINE 21 MG/24HR PATCH TD SCH (10:08)
[2019-06-12 11:48] VITALS: BP 113/60
[2019-06-12] MEDS: IV NS 1000 ML 1,000 ML IV PRN (13:41)
[2019-06-12 15:14] VITALS: BP 116/65
[2019-06-12] MEDS: MIRTAZAPINE 15 MG TABLET PO SCH (20:47)
[2019-06-12] MEDS: QUETIAPINE FUMARATE 100 MG TABLET PO SCH (20:48)
[2019-06-12 20:50] VITALS: BP 106/67
[2019-06-13] MEDS: MORPHINE SULFATE 2 MG/1 ML DISP.SYRIN IV PRN ×3 (04:35→11:45)
[2019-06-13] MEDS: IV NS 1000 ML 1,000 ML IV PRN (04:35)
[2019-06-13] MEDS: PANTOPRAZOLE SODIUM 40 MG TABLET.DR PO SCH (06:02)
[2019-06-13 06:16] VITALS: BP 110/54
[2019-06-13] MEDS: NICOTINE 21 MG/24HR PATCH TD SCH (08:13)
[2019-06-13] MEDS: CLINDAMYCIN PHOSPHATE IV 900 MG in IV DEXTROSE 5% 100 ML IV SCH (08:13)
[2019-06-13 11:17] VITALS: BP 124/78
== END 2019-06-13 14:25 | disposition home or self-care (01) | DRG 383 ==
LOC: ER 02:41 → MEDSURG3 05:35
PROVIDERS: ADMIT Registered Nurse
PROC: 05HA33Z Insertion of Infusion Device into Left Brachial Vein, Percutaneous Approach (ICD-10-PCS; principal; 2019-06-10)
DX: L03.115 Cellulitis of right lower limb (principal); F11.10 Opioid abuse, uncomplicated; S91.03 Puncture wound without foreign body of ankle; X78.8XXS Intentional self-harm by other sharp object, sequela; Z59.0 Homelessness; F31.9 Bipolar disorder, unspecified; N20.0 Calculus of kidney; F17.210 Nicotine dependence, cigarettes, uncomplicated; Z79.01 Long term (current) use of anticoagulants; Z86.19 Personal history of other infectious and parasitic diseases; Z79.899 Other long term (current) drug therapy
CPT/HCPCS: 36415; 73590; 73610; 73630; 83605; 83735; 84100; 84443; 85025; 85730; 87040; G0378; J1885; J2060; J2270; J3370; J3490; J7030; J7050; J7060; Q9967

== ENCOUNTER 2019-10-13 17:02 | Emergency (ER) | payer MEDICAID ==
[~2019-10-13] VITALS: Ht 162.6 cm; Wt 72.6 kg
[~2019-10-13 17:02] MED LIST changes: -CLON1PAT TD; +CLON1TAB12 PO; -DULO20CA PO; -HYDR28.34 TOP; -LACT1CAP57 PO; -LEVO500T2 PO; -LORA-259 PO; +MIRT15TA3 PO; -OXYC5TAB3 PO; +QUET100T PO; -RIVA10TA PO; -RIVA15TA PO
[2019-10-13] MEDS ORDERED: IV NORMAL SALINE 1000 ML BAG IV ONE (17:30)
[2019-10-13] MEDS ORDERED: ONDANSETRON 4 MG/2 ML VIAL IV ONE (17:30)
[2019-10-13] MEDS ORDERED: KETOROLAC TROMETHAMINE 30 MG INJ IVP ONE (17:30)
[2019-10-13 17:37] LABS: *BILIRUBIN,URIN NEGATIVE (NEGATIVE); *COLOR,URINE YELLOW (YELLOW); *KETONES,URINE NEGATIVE (NEGATIVE); *UROBILINOGEN,URINE 0.2 E.U./dl (NORMAL); LEUKOCYTE ESTERASE ,URINE NEGATIVE (NEGATIVE); NITRITE, URINE NEGATIVE (NEGATIVE); PH,URINE 7.5 (5.0-8.0); UGLUCOSE NEGATIVE (NEGATIVE)
[2019-10-13] MEDS ORDERED: CLON0.1T PO (17:41)
[2019-10-13] MEDS ORDERED: [UNRECOGNIZED DRUG - OTHER] PO (17:41)
[2019-10-13] MEDS ORDERED: BUPR300T52 PO (17:41)
[2019-10-13 17:43] LABS: *BLOOD, URINE TRACE (NEGATIVE); *CLARITY,URINE SLIGHTLY HAZY (CLEAR)
[2019-10-13 17:44] LABS: MUCUS,URINE FEW /LPF (0-FEW); RBC,URINE 0-3 /HPF (0-3); URINE AMORPHOUS PHOSPHATES MODERATE /HPF; WBC,URINE 0-3 /HPF (0-3)
[2019-10-13] MEDS ORDERED: KETOROLAC TROMETHAMINE 30 MG INJ ONE (17:48)
[2019-10-13] MEDS ORDERED: ONDANSETRON 4 MG/2 ML VIAL ONE (17:48)
[2019-10-13] MEDS ORDERED: ONDANSETRON 4 MG/2 ML VIAL IM ONE (18:00)
[2019-10-13] MEDS ORDERED: KETOROLAC TROMETHAMINE 60 MG INJ IM ONE (18:00)
[2019-10-13] MEDS ORDERED: ONDANSETRON ODT 4 MG TAB.RAPDIS SL ONE (18:00)
[2019-10-13] MEDS ORDERED: KETOROLAC TROMETHAMINE 30 MG INJ IM ONE (18:00)
--- NOTE | 2019-10-13 18:37 | NUR ---
DCD instructions and prescription given to pt. who verbalized undertanding, and left unit ambulatory with pain better controlled.
== END 2019-10-13 18:41 | disposition home or self-care (01) ==
LOC: ER 17:02
DX: N20.0 Calculus of kidney (principal); F41.9 Anxiety disorder, unspecified; F32.9 Major depressive disorder, single episode, unspecified; F17.210 Nicotine dependence, cigarettes, uncomplicated; F11.10 Opioid abuse, uncomplicated; F15.10 Other stimulant abuse, uncomplicated; Z88.0 Allergy status to penicillin; Z59.0 Homelessness; Z79.899 Other long term (current) drug therapy
CPT/HCPCS: 74176; 81000; 81001; 96372 ×2; 99284; J1885; J2405; A4663; J7030